=== PATIENT | female | born 1995 | race Caucasian/White ===

== ENCOUNTER 2020-08-16 10:42 | Emergency (ER) | payer OTHER ==
[~2020-08-16] VITALS: Ht 160 cm; Wt 74.8 kg
[~2020-08-16 10:42] MED LIST: ACETAMINOPHEN-1 EAC1 PO; LO LOESTRIN FE1 EACH PO
[2020-08-16] MEDS ORDERED: LEXAPRO 10 MG T10 M2 PO (10:53)
[2020-08-16 11:33] VITALS: BP 148/73
== END 2020-08-16 11:34 | disposition home or self-care (01) ==
LOC: M.ERS 10:42
DX: R05 Cough (principal); Z20.828 Contact with and (suspected) exposure to other viral communicable diseases; Z88.2 Allergy status to sulfonamides

== ENCOUNTER 2021-06-13 14:44 | Emergency (ER) | payer OTHER ==
[~2021-06-13] VITALS: Ht 160 cm; Wt 82.1 kg
[~2021-06-13 14:44] MED LIST changes: +LEXAPRO 10 MG T10 M2 PO
[2021-06-13] MEDS ORDERED: PLAQUENIL200 MG PO (14:54)
[2021-06-13] MEDS ORDERED: VITAMIN D (14:54)
[2021-06-13 15:27] LABS: URINE BILIRUBIN NEGATIVE (Negative); URINE BLOOD NEGATIVE (Negative); URINE CLARITY CLEAR; URINE COLOR YELLOW; URINE GLUCOSE-RANDOM NEGATIVE (Negative); URINE KETONES NEGATIVE (Negative); URINE LEUKOCYTES-REFLEX NEGATIVE (Negative); URINE NITRITE-REFLEX NEGATIVE (Negative); URINE PROTEIN NEGATIVE (Negative); URINE SPECIFIC GRAVITY >= 1.030 (1.005-1.030); URINE UROBILINOGEN 0.2 E.U./dl (0.2-1.0)
[2021-06-13 15:54] LABS: ABSOLUTE BASOPHILS 0.1 thou/uL (0.0-0.2); ABSOLUTE EOSINOPHILS 0.2 thou/uL (0.0-0.7); ABSOLUTE LYMPHOCYTES 2.6 thou/uL (0.8-5.3); ABSOLUTE MONOCYTES 0.5 thou/uL (0.0-1.2); ABSOLUTE NEUTROPHILS 5.9 thou/uL (1.6-8.1); BASOPHILS 1.2 %; HEMATOCRIT 37.7 % (37.0-47.0); HEMOGLOBIN 12.9 gm/dL (12.0-15.0); LYMPHOCYTES 28.1 %; MCH 29.7 pg (26.0-34.0); MCHC 34.1 g/dL (28.0-37.0); MCV 87.2 fL (80.0-100.0); MONOCYTES 5.1 %; MPV 8.9 fl. (7.2-11.1); NUCLEATED RBCS 0 /100WBC; PLATELET COUNT* 211 thou/uL (150-400); POLYS 63.6 %; RBC 4.32 mil/uL (4.20-5.00); WBC 9.4 thou/uL (4.0-11.0)
[2021-06-13 16:02] LABS: CREATININE 0.8 mg/dL (0.6-1.3); POTASSIUM 3.9 mmol/L (3.5-5.1)
[2021-06-13 16:06] LABS: ALBUMIN 3.2 g/dL (3.4-5.0); TOTAL BILIRUBIN 0.3 mg/dL (<0.1-1.0)
[2021-06-13] MEDS ORDERED: APAP W/CODEINE1 TA2 PO (18:07)
[2021-06-13 18:19] VITALS: BP 132/80
== END 2021-06-13 18:22 | disposition home or self-care (01) ==
LOC: M.ERS 14:44
PROVIDERS: Physician Assistant
DX: R10.84 Generalized abdominal pain (principal); R11.0 Nausea; Z88.2 Allergy status to sulfonamides